=== PATIENT | male | born 1960 | race Caucasian/White ===

== ENCOUNTER 2019-06-30 20:22 | Emergency (ER) | payer MEDICAID ==
[~2019-06-30] VITALS: Ht 167.6 cm; Wt 72.1 kg
[~2019-06-30 20:22] MED LIST: [UNRECOGNIZED DRUG - CODE] PO
[2019-06-30 20:36] VITALS: BP 143/75
--- NOTE | 2019-06-30 20:38 | NUR ---
PT AMBULATED TO BED 7.
--- NOTE | 2019-06-30 20:41 | NUR ---
PT CAME TO ER C/O OF ENLARGED BUMP ON UPPER RIGHT BACK. PER PT IT HAS BEEN THERE FOR ABOUT 1 YEAR, BUT NOTICED IT ENLARGED, RED, AND SWOLLEN X1 WEEK. SKIN INTACT, NO BLEEDING OR DRAINAGE NOTED. PAIN LEVEL 9/10, TENDER TO TOUCH. NO MED HX. SAFETY MEASURES IN PLACE. WAITING FOR ERMD TO EVALUATE PT.
[2019-06-30] MEDS ORDERED: LIDOCAINE 1% 500 MG/50 ML VIAL INJ SCH (20:50)
[2019-06-30] MEDS ORDERED: LIDOCAINE MPF 1% - 5 mL VIAL 5 ML ONE (21:22)
--- NOTE | 2019-06-30 21:25 | NUR ---
PA AT BEDSIDE FOR I&D. TOLERATED PROCEDURE WELL. EMT APPLIED DRESSING. INSTRUCTED TO COME BACK TO ER IN 2 DAYS.
--- NOTE | 2019-06-30 21:38 | NUR ---
Patient discharged with v/s stable. Written and verbal after care instructions given and explained. Instructed to take antibiotics as prescribed. Patient alert, oriented and verbalized understanding of instructions. Ambulatory with steady gait. All questions addressed prior to discharge. ID band removed. Patient advised to follow up in ER in 2 days. Rx of KEFLEX AND IBUPROFEN WAS given. Patient educated on indication of medication including possible reaction and side effects. Opportunity to ask questions provided and answered.
[2019-06-30 21:39] VITALS: BP 143/75
== END 2019-06-30 21:38 | disposition home or self-care (01) ==
LOC: MED 20:22
DX: L02.212 Cutaneous abscess of back [any part, except buttock and flank] (principal); Z79.899 Other long term (current) drug therapy
CPT/HCPCS: 10060; 99283; J2001

== ENCOUNTER 2019-07-01 19:08 | Emergency (ER) | payer MEDICAID ==
[~2019-07-01] VITALS: Ht 165.1 cm; Wt 72.6 kg
[2019-07-01 19:19] VITALS: BP 134/70
--- NOTE | 2019-07-01 19:22 | NUR ---
PT AMBULATED TO LOBBY.
--- NOTE | 2019-07-01 19:38 | NUR ---
PATIENT LEFT WITHOUT BEING SEEN BY DR. MCNEIL. NO FURTHER CARE PROVIDED FOR PATIENT.
== END 2019-07-01 19:38 | disposition left against medical advice (07) ==
LOC: MED 19:08
DX: Z48.01 Encounter for change or removal of surgical wound dressing (principal); Z53.21 Procedure and treatment not carried out due to patient leaving prior to being seen by health care provider

== ENCOUNTER 2019-07-01 21:34 | Emergency (ER) | payer MEDICAID ==
[~2019-07-01] VITALS: Ht 165.1 cm; Wt 73.0 kg
[2019-07-01 21:42] VITALS: BP 115/58
--- NOTE | 2019-07-01 21:43 | NUR ---
PT AMBULATED TO BED 12.
--- NOTE | 2019-07-01 21:46 | NUR ---
Dr. Gaspar examining patient.
--- NOTE | 2019-07-01 21:48 | NUR ---
PT CAME TO ER FOR WOUND CHECK REEVALUATION. PT WAS HERE 06/29/19 FOR I&D FOR BUMP ON UPPER RIGHT BACK. BUMP IS RED, NO DRAINAGE OR BLEEDING NOTED WITH 1CM INCISION. PT PAIN LEVEL 7/10 TO SITE. NKA. NO MED HX. SAFETY MEASURES IN PLACE. ERMD AT BEDSIDE.
--- NOTE | 2019-07-01 22:00 | NUR ---
ADHESIVE DRESSING PLACED OVER PT WOUND
--- NOTE | 2019-07-01 22:04 | NUR ---
Patient discharged with v/s stable. Written and verbal after care instructions given and explained. Pt was given extra bandaids for incision site. Patient verbalized understanding. Ambulatory with steady gait. All questions addressed prior to discharge.
[2019-07-01 22:05] VITALS: BP 115/58
== END 2019-07-01 22:04 | disposition home or self-care (01) ==
LOC: MED 21:34
DX: Z48.01 Encounter for change or removal of surgical wound dressing (principal); Z79.899 Other long term (current) drug therapy
CPT/HCPCS: 99282

== ENCOUNTER 2020-12-26 21:25 | Emergency (ER) | payer MEDICAID ==
[~2020-12-26] VITALS: Ht 165.1 cm; Wt 73.5 kg
[2020-12-26 21:30] VITALS: BP 150/65
--- NOTE | 2020-12-26 21:30 | NUR ---
TO BED AMBULATORY
--- NOTE | 2020-12-26 21:38 | NUR ---
60 YR OLD MALE PRESENTED TO THE ER WITH CC OF NAUSEA, VOMITING, DIZZINESS, AND EPIGASTRIC PAIN. PT IS AOX4. PT STATES EATING MALTESE FOOD YESTERDAY AND STARTED TO HAVE NAUSEA, VOMITING, DIZZINESS, AND EPIGASTRIC PAIN LAST NIGHT. PT STATES NO REDNESS AND NO DISCOLORATION IN VOMIT. PT STATES 4/10 SHARP NON-RADIATING EPIGASTRIC PAIN. ABDOMEN IS ROUND, SOFT, AND NONTENDER. PT DENIES OTHER MEDICAL COMPLAINTS. PT IS CHADIAN SPEAKING. BED IS LOCKED IN LOWEST POSITION WITH 1 SIDE RAIL UP. WILL CONTINUE TO MONITOR. HISTORY- PT STATES MINI STROKE 30-40 YEARS AGO ALLERGIES- NONE
--- NOTE | 2020-12-26 21:50 | NUR ---
ERMD AT BEDSIDE FOR MEDICAL EVALUATION.
[2020-12-26] MEDS ORDERED: MECLIZINE 25 MG TAB PO ONE (22:00)
[2020-12-26] MEDS ORDERED: NACL 0.9% 1,000 ML IV ONE (22:00)
[2020-12-26] MEDS ORDERED: ONDANSETRON 4 MG/2 ML VIAL IVP ONE (22:00)
--- NOTE | 2020-12-26 22:15 | NUR ---
LABS DRAWN AND HANDED TO [facility].
--- NOTE | 2020-12-26 22:23 | NUR ---
EKG AT BEDSIDE.
[2020-12-26 22:26] LABS: BASOPHILS % (AUTO) 0.5 % (0.0-2.0); EOSINOPHILS # (AUTO) 0.2 K/uL (0-0.4); EOSINOPHILS % (AUTO) 3.4 % (0.0-4.0); HEMATOCRIT 36.4 % (36-52); HEMOGLOBIN 11.9 g/dL (12.0-18.0); LYMPHOCYTES # (AUTO) 0.6 K/uL (2.0-11.5); LYMPHOCYTES % (AUTO) 13.5 % (20.5-51.1); MEAN CORPUSCULAR HEMOGLOBIN 27 pg (27-31); MEAN CORPUSCULAR HGB CONC 33 g/dL (33-37); MEAN CORPUSCULAR VOLUME 82.2 fL (80-94); MONOCYTES # (AUTO) 0.6 K/uL (0.8-1.0); MONOCYTES % (AUTO) 14.1 % (1.7-9.3); NEUTROPHILS % (AUTO) 68.5 % (42.2-75.2); PLATELET COUNT (AUTO) 190 K/uL (140-450); RED BLOOD CELL COUNT(AUTO) 4.43 MIL/uL (4.20-6.10); RED CELL DISTRIBUTION WIDTH 14.7 % (11.6-13.7); WHITE BLOOD COUNT (AUTO) 4.4 K/uL (4.8-10.8)
[2020-12-26 22:39] LABS: ANION GAP 12.9 (8-16); CARBON DIOXIDE 25.6 mmol/L (21-32); CREATININE 0.9 mg/dL (0.6-1.3); POTASSIUM 3.5 mmol/L (3.5-5.1)
[2020-12-26 23:32] VITALS: BP 136/57
--- NOTE | 2020-12-26 23:32 | NUR ---
Patient discharged with v/s stable. Written and verbal after care instructions given and explained. Patient alert, oriented and verbalized understanding of instructions. Ambulatory with steady gait. All questions addressed prior to discharge. ID band removed. Patient advised to follow up with PMD. Rx of MECLIZINE HYDROCHLORIDE AND ZOFRAN given. Patient educated on indication of medication including possible reaction and side effects. Opportunity to ask questions provided and answered.
--- NOTE | 2020-12-26 23:32 | NUR ---
IV removed, catheter intact and site benign. Applied folded 4x4 gauze and tape to stop bleeding.
== END 2020-12-26 23:32 | disposition home or self-care (01) ==
LOC: MED 21:25
DX: H81.10 Benign paroxysmal vertigo, unspecified ear (principal)
CPT/HCPCS: 36415; 80048; 84484; 85025; 93005; 96361; 96374; 99284; J2405; J7030; J8597